=== PATIENT | female | born 1935 | race Caucasian/White ===

== ENCOUNTER 2018-12-19 18:23 | Emergency (ER) | payer MEDICARE, BC ==
[~2018-12-19] VITALS: Ht 162.6 cm; Wt 49.9 kg
[~2018-12-19 18:23] MED LIST: INDERAL10 MG GT; SYNTHROID75 MCG ORAL; [UNRECOGNIZED DRUG - OTHER]
--- NOTE | 2018-12-19 18:25 | NUR ---
ED Nurse Note: Patient walked into ED c/o elevated blood pressure, patient states that before she left her house, she presented with a blood pressure of in the 200s, at time of arrival patients blood pressure is still elevated at 202/95. complains of mild headache, denies any blurred vision at this time. patient placed a on patient account analyst, IV started on left AC 20 gauge, bed at lowest position. will continue to monitor
[2018-12-19 18:50] VITALS: BP 205/85
[2018-12-19 19:08] LABS: EOSINOPHILS % (AUTO) 1.7 % (0.0-3.0); HEMATOCRIT 39.4 % (37.0-47.0); HEMOGLOBIN 13.6 G/DL (12.0-16.0); LYMPHOCYTES % (AUTO) 24.4 % (20.0-45.0); MEAN CORPUSCULAR VOLUME 87 FL (80-99); MONOCYTES % (AUTO) 8.4 % (1.0-10.0); NEUTROPHILS % (AUTO) 64.5 % (45.0-75.0); PLATELET COUNT 269 K/UL (150-450); RED BLOOD COUNT 4.52 M/UL (4.20-5.40)
[2018-12-19 19:14] VITALS: BP 185/78
--- NOTE | 2018-12-19 19:14 | NUR ---
ED Nurse Note: received patient from del powell. patient resting in bed with no acute distress ao4. bp 185/78; vitals otherwise stable; ermd aware. respirations even and unlabored. pt aware urine sample needed; states she will provide urine when ready. no new orders at this time. will continue to monitor
--- NOTE | 2018-12-19 19:16 | NUR ---
HAND-OFF: Report given to Juan Jose Pugh RN.
[2018-12-19 19:20] LABS: ANION GAP 6 mmol/L (5-15); BLOOD UREA NITROGEN 20 mg/dL (7-18); CALCIUM 9.2 MG/DL (8.5-10.1); CARBON DIOXIDE 32 MMOL/L (21-32); CHLORIDE 99 MMOL/L (98-107); CREATININE 0.7 MG/DL (0.55-1.30); POTASSIUM 3.7 MMOL/L (3.5-5.1); SODIUM 137 MMOL/L (136-145)
--- NOTE | 2018-12-19 19:26 | Emergency Room Report ---
History of Present Illness General Chief Complaint: General Complaint Source: Patient Present Illness HPI Patient presents with her blood pressure out of control. She usually takes propranolol 10 mg twice to 3 times a day depending what her blood pressure is. She was also taking Bystolic that was stopped a week ago because she did not tolerate it well she had truncal itching. In addition she was taking spironolactone that was stopped even before because she did not tolerate it. She has a history of mitral valve prolapse. She denies any chest pain or palpitations recently. The patient takes thyroid replacement. Patient has some nocturia and some frequency. The patient does not feel she is under increased stress however she states that her apartment due to a large presence of homeless people around her apartment. No fevers, chills, sore throat, nausea, vomiting, diarrhea, dysuria, abdominal pain, shortness of breath, joint pain, rashes, depression, visual changes, dizziness, headache. She was admitted for hypertensive urgency in 2012. At that time her blood pressure was controlled with Coreg and Catapres. She had been continued on propranolol 20mg. Discharge diagnoses: 1. Accelerated hypertension. 2. Hypothyroidism. 3. Borderline dyslipidemia. 4. Mitral valve prolapse. 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 Reviewed Nursing Documentation: PMH: Agreed; PSxH: Agreed Nursing Documentation-PMH Hx Cardiac Problems: Yes - mitral valve prolaps Hx Hypertension: Yes Hx Cancer: No Hx Gastrointestinal Problems: No Hx Neurological Problems: Yes - thyroid Review of Systems All Other Systems: negative except mentioned in HPI Physical Exam Vital Signs Date Time Temp Pulse Resp B/P (MAP) Pulse Ox O2 Delivery O2 Flow Rate FiO2 12/19/18 18:44 97.9 72 16 195/80 (118) 98 Room Air Sp02 EP Interpretation: reviewed, normal General Appearance: well appearing, no apparent distress, GCS 15 Head: normocephalic, atraumatic Eyes: bilateral eye normal inspection, bilateral eye PERRL, bilateral eye EOMI ENT: moist mucus membranes Neck: supple Respiratory: lungs clear, normal breath sounds Cardiovascular #1: regular rate, rhythm Cardiovascular #2: 2+ radial (R) Gastrointestinal: normal inspection, normal bowel sounds, non tender, no mass, non-distended Musculoskeletal: back normal, gait/station normal, normal range of motion Neurologic: alert, oriented x3, grossly normal Psychiatric: mood/affect normal Medical Decision Making Diagnostic Impression: Primary Impression: Hypertension Qualified Codes: I10 - Essential (primary) hypertension Additional Impression: Situational stress ER Course Patient presents with recent stopping of other antihypertensives with blood pressure out of control. Differential includes labile hypertension, hypertensive urgency, renal failure, acute myocardial infarction, electrolyte imbalance amongst others. Patient will have serial blood pressures obtained. She will be evaluated with EKG, chest x-ray and labs. Consideration for starting Norvasc. The fact she intermittently takes propranolol makes a little bit more difficult to ascertain what will be needed at this time. EKG sinus rhythm with nonspecific ST-T wave changes rate of 62. Chest x-ray as below no infiltrates. Other labs unremarkable except for elevated BUN. Blood pressure still high. Norvasc ordered. Blood pressure improved after Norvasc. Discussed blood pressure monitoring and the need for outpatient reevaluation. Also advised not to take extra dose of propranolol. Patient improved and stable for outpatient observation and treatment. Laboratory Tests Test 12/19/18 18:55 12/19/18 19:25 White Blood Count 7.0 K/UL (4.8-10.8) Red Blood Count 4.52 M/UL (4.20-5.40) Hemoglobin 13.6 G/DL (12.0-16.0) Hematocrit 39.4 % (37.0-47.0) Mean Corpuscular Volume 87 FL (80-99) Mean Corpuscular Hemoglobin 30.1 PG (27.0-31.0) Mean Corpuscular Hemoglobin Concent 34.6 G/DL (32.0-36.0) Red Cell Distribution Width 11.0 % (11.6-14.8) L Platelet Count 269 K/UL (150-450) Mean Platelet Volume 6.3 FL (6.5-10.1) L Neutrophils (%) (Auto) 64.5 % (45.0-75.0) Lymphocytes (%) (Auto) 24.4 % (20.0-45.0) Monocytes (%) (Auto) 8.4 % (1.0-10.0) Eosinophils (%) (Auto) 1.7 % (0.0-3.0) Basophils (%) (Auto) 1.0 % (0.0-2.0) Prothrombin Time 10.4 SEC (9.30-11.50) Prothrombin Time INR 1.0 (0.9-1.1) PTT 27 SEC (23-33) Sodium Level 137 MMOL/L (136-145) Potassium Level 3.7 MMOL/L (3.5-5.1) Chloride Level 99 MMOL/L (98-107) Carbon Dioxide Level 32 MMOL/L (21-32) Anion Gap 6 mmol/L (5-15) Blood Urea Nitrogen 20 mg/dL (7-18) H Creatinine 0.7 MG/DL (0.55-1.30) Estimate Glomerular Filtration Rate mL/min (>60) Glucose Level 104 MG/DL (74-106) Calcium Level 9.2 MG/DL (8.5-10.1) Total Bilirubin 0.3 MG/DL (0.2-1.0) Aspartate Amino Transferase (AST) 19 U/L (15-37) Alanine Aminotransferase (ALT) 23 U/L (12-78) Alkaline Phosphatase 74 U/L (46-116) Total Creatine Kinase 84 U/L (26-308) Troponin I 0.000 ng/mL (0.000-0.056) Pro-B-Type Natriuretic Peptide 235 pg/mL (0-125) H Total Protein 8.0 G/DL (6.4-8.2) Albumin 3.9 G/DL (3.4-5.0) Globulin 4.1 g/dL Albumin/Globulin Ratio 1.0 (1.0-2.7) Urine Color Pale yellow Urine Appearance Clear Urine pH 7 (4.5-8.0) Urine Specific [place] 1.005 (1.005-1.035) Urine Protein Negative (NEGATIVE) Urine Glucose (UA) Negative (NEGATIVE) Urine Ketones Negative (NEGATIVE) Urine Blood Negative (NEGATIVE) Urine Nitrite Negative (NEGATIVE) Urine Bilirubin Negative (NEGATIVE) Urine Urobilinogen Normal MG/DL (0.0-1.0) Urine Leukocyte Esterase Negative (NEGATIVE) EKG Diagnostic Results Rate: normal Rhythm: NSR ST Segments: no acute changes Rhythm Strip Diag. Results EP Interpretation: yes Rhythm: NSR, no PVC's, no ectopy Chest X-Ray Diagnostic Results Chest X-Ray Diagnostic Results : Chest X-Ray Ordered: Yes # of Views/Limited/Complete: 1 View Indication: Other EP Interpretation: Yes Interpretation: no consolidation, no effusion, no pneumothorax, other - Calcified nodules right lung, osteopenia Impression: Other Electronically Signed by: Electronically signed by Hunter Foy MD Last Vital Signs Date Time Temp Pulse Resp B/P (MAP) Pulse Ox O2 Delivery O2 Flow Rate FiO2 12/19/18 21:15 97.9 65 14 116/89 98 Room Air Status: improved Disposition: HOME, SELF-CARE Condition: Improved Scripts Amlodipine Besylate (Norvasc) 2.5 Mg Tablet 2.5 MG ORAL DAILY, #30 TAB Prov: Hunter Foy MD 12/19/18 Hunter Foy MD Dec 19, 2018 19:26
--- NOTE | 2018-12-19 19:27 | NUR ---
ED Nurse Note: patient ambulated to bathroom with steady gait. urine sample collected; sent down to lab. patient back in bed. reattached to monitor. no acute distress. medicated for htn.
[2018-12-19 19:31] LABS: ALANINE AMINOTRANSFERASE 23 U/L (12-78); ALBUMIN 3.9 G/DL (3.4-5.0); ALKALINE PHOSPHATASE 74 U/L (46-116); ASPARTATE AMINO TRANSFERASE 19 U/L (15-37); BILIRUBIN,TOTAL 0.3 MG/DL (0.2-1.0); CREATINE KINASE 84 U/L (26-308)
[2018-12-19 20:09] VITALS: BP 116/89
[2018-12-19 20:32] LABS: APPEARANCE,URINE CLEAR; BILIRUBIN, URINE NEGATIVE (NEGATIVE); COLOR,URINE PALE YELLOW; GLUCOSE, URINE (UA) NEGATIVE (NEGATIVE); KETONES,URINE NEGATIVE (NEGATIVE); LEUKOCYTE ESTERASE ,URINE NEGATIVE (NEGATIVE); NITRITE,URINE NEGATIVE (NEGATIVE); PH,URINE 7 (4.5-8.0); PROTEIN,URINE NEGATIVE (NEGATIVE); UROBILINOGEN,URINE NORMAL MG/DL (0.0-1.0)
[2018-12-19] MEDS ORDERED: NORVASC2.5 MG ORAL (21:00)
[2018-12-19 21:15] VITALS: BP 116/89
--- NOTE | 2018-12-19 21:15 | NUR ---
ER DISCHARGE NOTE: Patient is cleared to be discharged per ERMD, pt is aox4, on room air, with stable vital signs. accompanied by friend. pt was given dc and prescription instructions, pt was able to verbalize understanding, pt id band and iv site removed without complications. pt is able to ambulate with steady gait. pt took all belongings.
--- NOTE | 2018-12-20 13:11 | Diagnostic Imaging Report ---
Indication: Chest pain Comparison: 02/07/2013 A single view chest radiograph was obtained. Findings: No definite infiltrate or pulmonary vascular congestion identified. Calcifications projected over the right lung consistent with granulomata. The heart is enlarged. The aorta is mildly enlarged consistent with atherosclerotic vascular disease. The bones are osteopenic. Impression: No acute disease
--- NOTE | 2018-12-21 07:26 | Cardiology Report ---
APPROVED REPORT EKG Measurement Heart [id number] NM [id number] Sinus rhythm with 1st degree AV block Anterior infarct, age undetermined Abnormal ECG
== END 2018-12-19 21:15 | disposition home or self-care (01) ==
LOC: EMR 19:00
DX: I10 Essential (primary) hypertension (principal); Z88.0 Allergy status to penicillin; Z88.2 Allergy status to sulfonamides; F43.9 Reaction to severe stress, unspecified; I34.1 Nonrheumatic mitral (valve) prolapse
CPT/HCPCS: 36415; 71045; 80053; 81003; 82550; 83880; 84484; 85025; 85610; 85730; 93005; 99284